=== PATIENT | female | born 1960 ===

== ENCOUNTER 2025-06-22 18:18 | Observation (INO) | payer MEDICARE ==
[~2025-06-22] VITALS: Ht 167.6 cm; Wt 76.1 kg
[2025-06-22] MEDS ORDERED: Morphine Sulfate 4 MG/1 ML Injection IM ONE (19:40)
[2025-06-22] MEDS ORDERED: Propofol 10mg/ml 20 ml Vial (Procedural) IV SCH (20:20)
[2025-06-22] MEDS ORDERED: FentaNYL Citrate 50 MCG/ML 2 ML Injection IV ONE ×4 (20:20→22:00)
[2025-06-22] MEDS ORDERED: NS 1,000 ML IV ONE (20:51)
[2025-06-22] MEDS ORDERED: Diazepam 5 MG / ML 2ML SYR IV ONE (21:20)
[2025-06-22] MEDS ORDERED: Metoclopramide HCl 5MG / ML 2ML Vial IV PRN (21:25)
[2025-06-22] MEDS ORDERED: NS 1,000 ML IV SCH (21:30)
[2025-06-22] MEDS ORDERED: FLU VACC TS2025(65UP)/MF59C/PF 45 MCG/0.5 ML SYRINGE IM SCH (21:30)
[2025-06-22] MEDS ORDERED: FentaNYL Citrate 50 MCG/ML 2 ML Injection IV PRN (21:30)
[2025-06-22] MEDS ORDERED: Ketorolac Tromethamine 15mg Vial IV PRN (21:30)
[2025-06-22] MEDS ORDERED: Ondansetron HCl 2 MG / ML 2ML Vial IV PRN (21:30)
[2025-06-22] MEDS ORDERED: Albuterol 2.5 MG/3 ML VIAL INH PRN (21:35)
[2025-06-22] MEDS ORDERED: OxyCODONE 5 mg/Acetamin 325 mg TABLET PO PRN (21:35)
[2025-06-22] MEDS ORDERED: LORazepam 2 MG/ML 1ML Injection ONE (21:53)
[2025-06-22] MEDS ORDERED: LORazepam 2 MG/ML 1ML Injection IV ONE (22:00)
[2025-06-22] MEDS ORDERED: Ketorolac Tromethamine 15mg Vial IV ONE (22:00)
[2025-06-22] MEDS ORDERED: Metoclopramide HCl 5MG / ML 2ML Vial IV ONE (22:00)
[2025-06-22 23:42] VITALS: BP 168/88
[2025-06-23] VITALS (13 sets, daily range): BP systolic 129–202; BP diastolic 73–114
[2025-06-23] MEDS ORDERED: OXYB5 PO (00:07)
[2025-06-23] MEDS ORDERED: ENBREL SUR50 MG/1 M1 SC (00:07)
[2025-06-23] MEDS ORDERED: DULO30 PO (00:08)
[2025-06-23] MEDS ORDERED: LEVSOD25 PO (00:08)
[2025-06-23] MEDS ORDERED: FOLI1 PO (00:09)
[2025-06-23] MEDS ORDERED: METTREX2.5 PO (00:09)
--- NOTE | 2025-06-23 05:16 | NUR ---
[employer] SUMMARY PT IS A NEW ADMIT TONIGHT, HERE FOR A RT SHOULDER DISLOCATION. REDUCTION ATTEMPTED IN ED BUT WAS UNSUCCESSFULL. PT CAME TO UNIT AAOX4 AND PLEASANT. ABLE TO TRANSFER HERSELF WITH A STANDBY ASSIST. PT HAD RECEIVED PERCOCET AND FENTANYL IN ED RIGHT BEFORE COMING TO THE FLOOR. PT STILL UNCOMFORTABLE BUT STATED PAIN WAS MUCH IMPROVED. REPORTS SOME NUMBNESS TO R ARM BUT ABLE TO MOVE ARM AND WIGGLE FINGERS. PT WAS ABLE TO EVENTUALLY FALL ASLEEP AND HAS GOTTEN SEVERAL HOURS OF SLEEP TONIGHT. PT'S DAUGHTERS AT BEDSIDE THROUGH THE NIGHT, VERY KIND AND HELPFUL. NPO SINCE MIDNIGHT IN PREP FOR OR WITH DR JOVEL LATER THIS MORNING. JOSEPHINE, WHITNEY.
[2025-06-23 05:54] LABS: Hematocrit 34.3 % (33.0-51.0); Hemoglobin 11.8 g/dL (11.5-16.0); Mean Corpuscular HGB Conc 34.4 g/dL (31.5-36.5); Mean Corpuscular Volume 94 fL (80-100); NRBC ABSOLUTE 0.00 K/mm3 (0.00-0.02); NRBC Auto 0.0 /100 WBC (0.0-0.2); Platelet Count 235 K/mm3 (150-400); RDW Coefficient Variation 12.7 % (11.7-14.2); RDW Standard Deviation 43.4 fL (35.1-46.3)
[2025-06-23 06:21] LABS: Anion Gap 9.0 mmol/L (3-11); Blood Urea Nitrogen 10.0 mg/dL (8-24); CO2, Blood 23.0 mmol/L (21-32); Calcium, Blood 8.1 mg/dL (8.5-10.1); Chloride, Blood 112.0 mmol/L (98-108); Creatinine, Blood 0.75 mg/dL (0.40-1.00); Glucose, Blood 104.0 mg/dL (70-99); Potassium, Blood 3.5 mmol/L (3.5-5.5); Sodium, Blood 140.0 mmol/L (136-145)
[2025-06-23] MEDS ORDERED: Enoxaparin 40 MG/0.4 ML SYR SC SCH (09:00)
--- NOTE | 2025-06-23 13:13 | NUR ---
PT TO UNIT VIA GURN. ABLE TO TRANSFER INDEPENDENTLY. FAMILY TO DAY SURGERY WITH PT. BELONGINGS LEFT IN ROOM. WEDDING BAND REMOVED IN DAY SURGERY AND GIVEN TO PT'S DAUGHTER. Pre-Op teaching done. Pt verbalizes understanding. Patient confirms NPO status and agrees with scheduled surgery. 18G IV REMOVED IN LFA DUE TO LEAKING. PT TOW. NEW 18G PLACED IN LFA.
[2025-06-23] MEDS ORDERED: Dexamethasone Sod Phos 10 MG/ML 1ML VIAL ONE (13:26)
[2025-06-23] MEDS ORDERED: Rocuronium Bromide 10 MG/ML 5ML Injection IV ONE (13:26)
[2025-06-23] MEDS ORDERED: Ondansetron HCl 2 MG / ML 2ML Vial ONE (13:26)
[2025-06-23] MEDS ORDERED: Sugammadex Sodium 200 MG/2ML SDV (100 MG/ML) ONE (13:27)
[2025-06-23] MEDS ORDERED: FentaNYL Citrate 50 MCG/ML 2 ML Injection IV PRN ×2 (13:40)
[2025-06-23] MEDS ORDERED: Metoclopramide HCl 5MG / ML 2ML Vial IV PRN (13:40)
[2025-06-23] MEDS ORDERED: Morphine Sulfate 4 MG/1 ML Injection IV PRN (13:40)
[2025-06-23] MEDS ORDERED: HYDROmorphone HCl/Pf 1MG SYR ONE (13:40)
[2025-06-23] MEDS ORDERED: Ondansetron HCl 2 MG / ML 2ML Vial IV PRN (13:40)
[2025-06-23] MEDS ORDERED: HYDROmorphone HCl/Pf 1MG SYR IV PRN (13:40)
[2025-06-23] MEDS ORDERED: Percocet 5-3251 EACH PO (17:35)
[2025-06-23] MEDS ORDERED: DOCU100 PO (17:54)
[2025-06-23] MEDS ORDERED: MIRALAX17 GM PO (17:54)
--- NOTE | 2025-06-23 18:28 | NUR ---
PATIENT DISCHARGED. REVIEWED FOLLOW UP APPOINTMENT, INSTRUCTIONS FOR POST CARE AND GAVE HARD SCRIPT TO DAUGHTERS AT BED SIDE. ALL QUESTIONS ANSWERED.
== END 2025-06-23 18:30 | disposition home or self-care (01) ==
LOC: ER 18:18 → SURS 18:19
PROVIDERS: Nurse Practitioner Acute Care; Orthopaedic Surgery; ADMIT Student in an Organized Health Care Education/Training Program
PROC: 0RSJXZZ Reposition Right Shoulder Joint, External Approach (ICD-10-PCS; principal; 2025-06-23 13:00)
DX: S43.004A Unspecified dislocation of right shoulder joint, initial encounter (principal); W22.8XXA Striking against or struck by other objects, initial encounter
CPT/HCPCS: 23650; 36415; 73020; 73030; 73200; 80048; 85027; 94760; 94762; 96374-59; 96375-59; 96376-59; 99152; 99284-25; A9270; G0378; J1100; J1171; J1885; J2060; J2405; J2704; J3010; J3360; J7030; J7120